=== PATIENT | male | born 1950 | race Caucasian/White ===

== ENCOUNTER 2016-08-18 08:44 | Inpatient (IN) | payer MEDICARE, OTHER ==
[~2016-08-18] VITALS: Ht 162.6 cm; Wt 97.6 kg
[~2016-08-18 08:44] MED LIST: ALBU25PO2; AMIO200T2 PO; ATOR10TA60 PO; BUDE10.2; CARV3.12; DABI150C; DIGO0.25; DILT360C; DOXY100C2 PO; ESOM40CA PO; FENO130C; FURO-68 PO; FURO-69 PO; OXYGEN; POTA10TA; POTA20TA4 PO; PRED-220 PO; PROAIR HFA8.5 GM IH; SIMV20TA
[2016-08-18 09:12] LABS: BASO # 0.1 x10^3/uL (0.0-0.2); BASO % 1 % (0-3); EOS % 1 % (0-3); HEMOGLOBIN 18.6 g/dL (13.0-17.5); LYMPH # 1.9 x10^3/uL (1.0-4.8); LYMPH % 17 % (24-48); MEAN CORPUSCULAR HEMOGLOBIN 30 pg (25-35); MEAN CORPUSCULAR HGB CONC 33 g/dL (31-37); MEAN CORPUSCULAR VOLUME 93 fL (79-100); MONO % 11 % (0-9); NEUT % 71 % (31-73); PLATELET COUNT 207 x10^3/uL (140-400); RED BLOOD COUNT 6.15 x10^6/uL (4.30-5.70); RED CELL DISTRIBUTION WIDTH 14.5 % (11.5-14.5); WHITE BLOOD COUNT 11.4 x10^3/uL (4.0-11.0)
--- NOTE | 2016-08-18 09:15 | PHYS DOC ---
Past Medical History Past Medical History: CAD, CHF, COPD, High Cholesterol, MS Past Surgical History: Coronary Bypass Surgery Additional Past Surgical Histo: HEART SX, AICD Smoking: Quit Greater Than 1 Year Alcohol Use: None Drug Use: None Adult General Chief Complaint Chief Complaint: CHEST PAIN [facility] HPI Patient is a 66 year old male with history of HTN, hyperlipidemia, and CABG with AICD who presents with epigastric and chest pain with shortness of breath starting at 0600 today. He describes the pain as a pressure. He reports feeling nauseated without vomiting. He has had a non-productive cough without fevers. He felt his pulse and felt like it was more rapid. He feels generally weak and occasionally lightheaded. He denies swelling of the lower extremities or calf pain. He took all of his daily morning medications today prior to arrival. His PCP is Dr. Gatica. His continuous still operator is Dr. Rowland. Review of Systems Review of Systems Constitutional: Denies fever or chills. [] Eyes: Denies change in visual acuity, redness, or eye pain. [] HENT: Denies ear pain, nasal congestion or sore throat. [] Respiratory: Reports shortness of breath with mild non-productive cogh. Cardiovascular: Denies edema. Reports palpitations with chest pain. GI: Denies nausea, vomiting, bloody stools or diarrhea. Reports epigastric pain. : Denies dysuria, hematuria or urinary frequency. [] Musculoskeletal: Denies back pain or joint pain. [] Integument: Denies rash or skin lesions. [] Neurologic: Denies headache, focal weakness or sensory changes. Reports generalized weakness and feeling lightheaded. Endocrine: Denies polyuria or polydipsia. [] Psych: Denies anxiety or depression. [] All systems reviewed and negative unless otherwise stated in the HPI. Allergies Allergies Allergies Coded Allergies Type Severity Reaction Last Updated Verified No Known Drug Allergies 09/25/14 No Physical Exam Physical Exam Constitutional: Well developed, well nourished, no acute distress, non-toxic appearance. [] HENT: Normocephalic, atraumatic, oropharynx moist. [] Eyes: PERRLA, EOMI, conjunctiva normal, no discharge. [] Neck: Normal range of motion, no tenderness, supple, no stridor. [] Cardiovascular: Heart rate regular rhythm, no murmur. [] Lungs & Thorax: Bilateral breath sounds clear to auscultation without wheezes, rales, or rhonchi. [] Abdomen: Bowel sounds normal, soft, no tenderness, no masses, no pulsatile masses. [] Skin: Warm, dry, no erythema, no rash. [] Back: No midline tenderness, no CVA tenderness. [] Extremities: No tenderness, ROM intact, no edema. 2+ DP pulses bilaterally. [] Neurologic: Alert and oriented X 3, normal motor function, normal sensory function, no focal deficits noted. [] Psychologic: Affect normal, judgement normal, mood normal. [] Current Patient Data Vital Signs Vital Signs Date Time Temp Pulse Resp B/P Pulse Ox O2 Delivery O2 Flow Rate FiO2 08/18/16 08:48 98.1 62 20 148/85 94 Room Air 98.1 Lab Values Laboratory Tests Test 08/18/16 09:05 White Blood Count 11.4x10^3/uL (4.0-11.0) H Red Blood Count 6.15x10^6/uL (4.30-5.70) H Hemoglobin 18.6g/dL (13.0-17.5) H Hematocrit 57.0% (39.0-53.0) H Mean Corpuscular Volume 93fL (79-100) Mean Corpuscular Hemoglobin 30pg (25-35) Mean Corpuscular Hemoglobin Concent 33g/dL (31-37) Red Cell Distribution Width 14.5% (11.5-14.5) Platelet Count 207x10^3/uL (140-400) Neutrophils (%) (Auto) 71% (31-73) Lymphocytes (%) (Auto) 17% (24-48) L Monocytes (%) (Auto) 11% (0-9) H Eosinophils (%) (Auto) 1% (0-3) Basophils (%) (Auto) 1% (0-3) Neutrophils # (Auto) 8.1x10^3uL (1.8-7.7) H Lymphocytes # (Auto) 1.9x10^3/uL (1.0-4.8) Monocytes # (Auto) 1.3x10^3/uL (0.0-1.1) H Eosinophils # (Auto) 0.1x10^3/uL (0.0-0.7) Basophils # (Auto) 0.1x10^3/uL (0.0-0.2) Prothrombin Time 15.0SEC (11.7-14.0) H Prothrombin Time INR 1.3 (0.8-1.1) H Sodium Level 140mmol/L (136-145) Potassium Level 3.6mmol/L (3.5-5.1) Chloride Level 99mmol/L (98-107) Carbon Dioxide Level 32mmol/L (21-32) Anion Gap 9 (6-14) Blood Urea Nitrogen 20mg/dL (8-26) Creatinine 1.5mg/dL (0.7-1.3) H Estimated GFR (Cockcroft-Gault) 46.7 Glucose Level 116mg/dL (70-99) H Calcium Level 9.2mg/dL (8.5-10.1) Magnesium Level 2.5mg/dL (1.8-2.4) H Total Bilirubin 0.9mg/dL (0.2-1.0) Direct Bilirubin 0.2mg/dL (0.0-0.2) Aspartate Amino Transferase (AST) 48U/L (15-37) H Alanine Aminotransferase (ALT) 77U/L (16-63) H Alkaline Phosphatase 181U/L (46-116) H Creatine Kinase 78U/L (39-308) Creatine Kinase MB (Mass) 1.1ng/mL (0.0-3.6) Creatine Kinase MB Relative Index 1.4% (0-4) Troponin I Quantitative < 0.017ng/mL (0.000-0.055) NG-Sir-O-Type Natriuretic Peptide 388pg/mL (0-124) H Total Protein 8.0g/dL (6.4-8.2) Albumin 4.0g/dL (3.4-5.0) Lipase 172U/L (73-393) Laboratory Tests 08/18/16 09:05 Laboratory Tests 08/18/16 09:05 EKG EKG EKG at 0855. Heart rate 65 bpm. Sinus rhythm without any acute ischemic changes or STEMI, as interpreted by Dr. Blankenship. Radiology/Procedures Radiology/Procedures REASON: soa, epigastric pain PROCEDURE: PORTABLE CHEST 1V Portable chest, 08/18/2016: History: Shortness of breath, elevated blood pressure Comparison is made to a study from 01/30/2016. There has been a previous median sternotomy. A left-sided transvenous pacemaker remains in place with a single lead extending into the right ventricle. There are epicardial leads overlying the upper heart. The heart is enlarged. There is mild tortuosity of the thoracic aorta. The pulmonary vascularity is normal. There is minimal linear scarring in the left base. No acute infiltrates are seen. There is no evidence of pleural fluid. IMPRESSION: 1. Mild cardiomegaly. 2. No acute abnormality is detected. Course & Med Decision Making Course & Med Decision Making Pertinent Labs and Imaging studies reviewed. (See chart for details) Patient is a 66-year-old male with history of hypertension, hyperlipidemia, CABG , and AICD who presents with shortness of breath with epigastric and chest pain starting this morning. Upon arrival to the emergency department, his vital signs are stable. Heart rate is regular without murmur and lungs are clear to auscultation. He has no tenderness over the chest wall or abdomen. EKG does not show any acute ischemic changes or STEMI. Initial troponin is negative. Chest x- ray does not show any acute abnormalities. Patient will be admitted to the hospital for repeat troponins and continued monitoring. The patient is in agreement with this plan. Dr. Rowland accepts the admission. The patient was in stable while in the emergency department. Dragon Disclaimer Dragon Disclaimer This electronic medical record was generated, in whole or in part, using a voice recognition dictation system. Departure Departure Impression: Primary Impression: Chest pain Additional Impression: Dyspnea Admitting Physician: Jerry Rowland Condition: STABLE Referrals: KATHERINE GATICA MD (PCP) Problem Qualifiers Primary Impression: Chest pain Chest pain type: unspecified Qualified Code: R07.9 - Chest pain, unspecified Additional Impression: Dyspnea Dyspnea type: shortness of breath Qualified Code: R06.02 - Shortness of breath JP LAWS Aug 18, 2016 09:15
[2016-08-18 09:24] LABS: CALCIUM 9.2 mg/dL (8.5-10.1); CREATININE 1.5 mg/dL (0.7-1.3); GFR 46.7; POTASSIUM 3.6 mmol/L (3.5-5.1)
[2016-08-18 09:31] LABS: DIRECT BILIRUBIN 0.2 mg/dL (0.0-0.2); MAGNESIUM 2.5 mg/dL (1.8-2.4); TOTAL BILIRUBIN 0.9 mg/dL (0.2-1.0)
[2016-08-18 09:35] LABS: INR 1.3 (0.8-1.1)
[2016-08-18 09:37] LABS: CKMB INDEX 1.4 % (0-4); CKMB MASS 1.1 ng/mL (0.0-3.6)
--- NOTE | 2016-08-18 09:38 | RAD ---
Portable chest, 08/18/2016: History: Shortness of breath, elevated blood pressure Comparison is made to a study from 01/30/2016. There has been a previous median sternotomy. A left-sided transvenous pacemaker remains in place with a single lead extending into the right ventricle. There are epicardial leads overlying the upper heart. The heart is enlarged. There is mild tortuosity of the thoracic aorta. The pulmonary vascularity is normal. There is minimal linear scarring in the left base. No acute infiltrates are seen. There is no evidence of pleural fluid. IMPRESSION: 1. Mild cardiomegaly. 2. No acute abnormality is detected.
--- NOTE | 2016-08-18 09:47 | ACF ---
Admission Forms Criteria HEART FAILURE: COMMON COMPLICATIONS Clinical Indications for Inpatient Care (Place 'X' for any and all applicable criteria): Ongoing inpatient care may be indicated for heart failure with ANY ONE of the following (1)(2)(3)(4)(5): [ ]I. Ongoing need for care for primary condition requiring frequent therapy adjustments because of changes in cardiac function (eg, drug dosage changes for drugs that are renally metabolized) [ ]II. New-onset heart failure [ ]III. Heart failure with decreased urine output not responsive to attempts to optimize volume status [ ]IV. Acute cardiac ischemia causing or associated with failure [X ]V. Complications of heart failure, including ANY ONE of the following: [ ]a) Pericardial effusion [ ]b) Symptomatic pleural effusion [ ]c) O2 saturation <90% or PO2 < 60 mm Hg (8.0 kPa) on room air or require baseline supplemental O2 [ ]d) Tachypnea [X ]e) Dyspnea [ ]f) Syncope [ ]g) Change in mental status [ ]h) Acute renal insufficiency that is severe (reduction of more than 50% in estimated glomerular filtration rate from baseline) or progressive reduction of more than 25% in estimated glomerular filtration rate from baseline, with creatinine continuing to rise) [ ]i) Hemodynamic instability [ ]j) Anasarca [ ]k) Clinically significant metabolic abnormalities due to heart failure (eg, new-onset metabolic acidosis) Extended stay beyond goal length of stay for primary condition may be needed until ALL of the following are present(1)(3): [ ]a) Stable and effective diuretic regimen established (or patient on stable dialysis regimen if in chronic renal failure) [ ]b) Breathing comfortably at rest [ ]c) Saturation of arterial oxygen greater than 90% or at acceptable baseline [ ]d) Pulmonary edema absent or improved [ ]e) Hemodynamic stability [ ]f) Volume status acceptable on oral medication [ ]g) Peripheral or sacral edema absent or improved [ ]h) Renal function stable and manageable at a lower level of care [ ]i) Complications (eg, pleural effusion) resolved or manageable at a lower level of care [ ]j) Patient or caregiver has received written discharge instructions or educational material addressing activity level, diet, discharge medications, follow-up appointment, weight monitoring, and what to do if symptoms worsen The original [employer] [facility] content created by [employer] has been revised. The portions of the content which have been revised are identified through the use of italic text or in bold, and [facility] has neither reviewed nor approved the modified material.All other unmodified content is copyright [facility]. Please see references footnoted in the original [facility] edition 2016 Admission Criteria Met?: Yes BRADY AGUILAR Aug 18, 2016 09:47
[2016-08-18] MEDS ORDERED: PROCHLORPERAZINE 10 MG/2 ML VIAL. IV PRN (10:00)
[2016-08-18] MEDS ORDERED: MORPHINE SULFATE 4 MG/ML DISP.SYRIN. IV PRN (10:00)
[2016-08-18 10:45] VITALS: BP 123/84
[2016-08-18] MEDS: AMIODARONE HCL 200 MG TABLET PO SCH (12:58)
[2016-08-18] MEDS: POTASSIUM CHLORIDE 20 MEQ TABLET.ER. PO SCH (12:59)
[2016-08-18] MEDS: PANTOPRAZOLE 40 MG TABLET. PO SCH (12:59)
--- NOTE | 2016-08-18 13:16 | EKG ---
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
[2016-08-18 15:15] VITALS: BP 136/82
[2016-08-18] MEDS ORDERED: FUROSEMIDE 40 MG/4 ML VIAL IVP ONE (16:00)
--- NOTE | 2016-08-18 17:01 | PDOC1 ---
History and Physical Date of Admission Date of Admission DATE: 08/18/16 TIME: 9:17 Identification/Chief Complaint Chief Complaint Hypertension Source Source: Patient History of Present Illness History of Present Illness Mr. Leonard is a 66 year old male with known HTN, CHF, CAD s/p CABG, Vtach s/p AICD, Afib on anticoagulation, ANNETTE on CPAP, GERD, and hx of GA in 2010 who presents to the ED after family check his blood pressure this morning around 6: 00 and noted it to be high. He was unable to recall what it was and family was not currently present. He also reported mild dyspnea, but felt it was related to his CPAP that he began using 2 weeks ago. He states he had some mild transient lightheadedness, but states that is typical for him. He denies any angina or lower extremity edema, but does report some nausea without vomiting as well as a "fast pulse." He also reports a dry productive cough. He denies any headache or changes in vision or hearing. He denies complications with bowel, bladder, or appetite, but did report poor po fluid intake, and that he had been drinking alot of soda. He offers no other complaints at this time Past Medical History Cardiovascular: AFIB (on Pradaxa), CAD (S/P CABG in 2010), CHF, HTN, GA (2010) , Hyperlipidemia, Other (Vtach- has AICD) Pulmonary: Pneumonia, Other (ANNETTE on CPAP) GI: GERD, Hemorrhoids Past Surgical History Past Surgical History: CABG Family History Family History: Coronary Artery Disease Social History Smoke: Quit (Quit 2010, previously 1ppd for 50 years) ALCOHOL: none Drugs: None Current Problem List Problem List Problems Medical Problems: (1) Chest pain Status: Acute (2) Dyspnea Status: Acute Problems: Current Medications Current Medications Current Medications Morphine Sulfate 4 mg PRN Q2HR PRN IV PAIN; Start 08/18/16 at 10:00; Stop at 09:59 Prochlorperazine Edisylate (Compazine) 10 mg PRN Q8HRS PRN IV NAUSEA/VOMITING; Start 08/18/16 at 10:00 Furosemide (Lasix) 40 mg 1X ONCE IVP Last administered on 08/18/16t 15:40; Start 08/18/16 at 16:00; Stop 08/18/16 at 16:01; Status DC Amiodarone HCl (Cordarone) 200 mg DAILY PO ; Start 08/18/16 at 13:30 Atorvastatin Calcium (Lipitor) 20 mg HS PO ; Start 08/18/16 at 21:00 Carvedilol (Coreg) 3.125 mg BIDWMEALS PO ; Start 08/18/16 at 17:00 Dabigatran (Pradaxa) 150 mg BID PO ; Start 08/18/16 at 21:00 Furosemide (Lasix) 20 mg DAILY PO ; Start 08/19/16 at 09:00 Potassium Chloride (Klor-Con) 20 meq DAILYWBKFT PO ; Start 08/18/16 at 13:30 Pantoprazole Sodium (Protonix) 40 mg DAILYAC PO ; Start 08/18/16 at 13:30 Active Scripts Active Klor-Con M20 (Potassium Chloride) 20 Meq Tablet.er 20 Meq PO DAILYWBKFT Reported Lasix (Furosemide) 40 Mg Tablet 20 Mg PO DAILY Atorvastatin Calcium 10 Mg Tablet 20 Mg PO HS Amiodarone Hcl 200 Mg Tablet 200 Mg PO DAILY Nexium Capsule (Esomeprazole Magnesium) 40 Mg Capsule.dr 40 Mg PO DAILYAC Pradaxa (Dabigatran Etexilate Mesylate) 150 Mg Capsule BID Coreg (Carvedilol) 3.125 Mg Tablet BID Allergies Allergies: Coded Allergies: No Known Drug Allergies (Unverified , 09/25/14) Physical Exam General: Alert, Oriented X3, Cooperative, No acute distress HEENT: PERRLA, EOMI Heart: no rubs, no gallops, no murmurs, no jug vein distention, irregularly irregular Abdomen: Normal bowel sounds, No tenderness, No hepatosplenomegaly, Other ( Distended) Extremities: No clubbing, No cyanosis, No edema, Normal pulses, No tenderness/ swelling Skin: No rashes, No breakdown, No significant lesion Neuro: Normal speech, Normal tone, Cranial nerves 3-12 NL Psych/Mental Status: Mental status NL, Mood NL Vitals Vitals Vital Signs Date Time Temp Pulse Resp B/P Pulse Ox O2 Delivery O2 Flow Rate FiO2 08/18/16 15:15 97.2 63 18 136/82 96 Nasal Cannula 2.0 97.2 Labs Labs Laboratory Tests Test 08/18/16 09:05 08/18/16 15:30 White Blood Count 11.4x10^3/uL (4.0-11.0) Red Blood Count 6.15x10^6/uL (4.30-5.70) Hemoglobin 18.6g/dL (13.0-17.5) Hematocrit 57.0% (39.0-53.0) Mean Corpuscular Volume 93fL (79-100) Mean Corpuscular Hemoglobin 30pg (25-35) Mean Corpuscular Hemoglobin Concent 33g/dL (31-37) Red Cell Distribution Width 14.5% (11.5-14.5) Platelet Count 207x10^3/uL (140-400) Neutrophils (%) (Auto) 71% (31-73) Lymphocytes (%) (Auto) 17% (24-48) Monocytes (%) (Auto) 11% (0-9) Eosinophils (%) (Auto) 1% (0-3) Basophils (%) (Auto) 1% (0-3) Neutrophils # (Auto) 8.1x10^3uL (1.8-7.7) Lymphocytes # (Auto) 1.9x10^3/uL (1.0-4.8) Monocytes # (Auto) 1.3x10^3/uL (0.0-1.1) Eosinophils # (Auto) 0.1x10^3/uL (0.0-0.7) Basophils # (Auto) 0.1x10^3/uL (0.0-0.2) Prothrombin Time 15.0SEC (11.7-14.0) Prothromb Time International Ratio 1.3 (0.8-1.1) Sodium Level 140mmol/L (136-145) Potassium Level 3.6mmol/L (3.5-5.1) Chloride Level 99mmol/L (98-107) Carbon Dioxide Level 32mmol/L (21-32) Anion Gap 9 (6-14) Blood Urea Nitrogen 20mg/dL (8-26) Creatinine 1.5mg/dL (0.7-1.3) Estimated GFR (Cockcroft-Gault) 46.7 Glucose Level 116mg/dL (70-99) Calcium Level 9.2mg/dL (8.5-10.1) Magnesium Level 2.5mg/dL (1.8-2.4) Total Bilirubin 0.9mg/dL (0.2-1.0) Direct Bilirubin 0.2mg/dL (0.0-0.2) Aspartate Amino Transf (AST/SGOT) 48U/L (15-37) Alanine Aminotransferase (ALT/SGPT) 77U/L (16-63) Alkaline Phosphatase 181U/L (46-116) Creatine Kinase 78U/L (39-308) Creatine Kinase MB (Mass) 1.1ng/mL (0.0-3.6) Creatine Kinase MB Relative Index 1.4% (0-4) Troponin I Quantitative < 0.017ng/mL (0.000-0.055) < 0.017ng/mL (0.000-0.055) ZD-Hda-A-Type Natriuretic Peptide 388pg/mL (0-124) Total Protein 8.0g/dL (6.4-8.2) Albumin 4.0g/dL (3.4-5.0) Lipase 172U/L (73-393) Laboratory Tests Test 08/18/16 09:05 08/18/16 15:30 White Blood Count 11.4x10^3/uL (4.0-11.0) Red Blood Count 6.15x10^6/uL (4.30-5.70) Hemoglobin 18.6g/dL (13.0-17.5) Hematocrit 57.0% (39.0-53.0) Mean Corpuscular Volume 93fL (79-100) Mean Corpuscular Hemoglobin 30pg (25-35) Mean Corpuscular Hemoglobin Concent 33g/dL (31-37) Red Cell Distribution Width 14.5% (11.5-14.5) Platelet Count 207x10^3/uL (140-400) Neutrophils (%) (Auto) 71% (31-73) Lymphocytes (%) (Auto) 17% (24-48) Monocytes (%) (Auto) 11% (0-9) Eosinophils (%) (Auto) 1% (0-3) Basophils (%) (Auto) 1% (0-3) Neutrophils # (Auto) 8.1x10^3uL (1.8-7.7) Lymphocytes # (Auto) 1.9x10^3/uL (1.0-4.8) Monocytes # (Auto) 1.3x10^3/uL (0.0-1.1) Eosinophils # (Auto) 0.1x10^3/uL (0.0-0.7) Basophils # (Auto) 0.1x10^3/uL (0.0-0.2) Prothrombin Time 15.0SEC (11.7-14.0) Prothromb Time International Ratio 1.3 (0.8-1.1) Sodium Level 140mmol/L (136-145) Potassium Level 3.6mmol/L (3.5-5.1) Chloride Level 99mmol/L (98-107) Carbon Dioxide Level 32mmol/L (21-32) Anion Gap 9 (6-14) Blood Urea Nitrogen 20mg/dL (8-26) Creatinine 1.5mg/dL (0.7-1.3) Estimated GFR (Cockcroft-Gault) 46.7 Glucose Level 116mg/dL (70-99) Calcium Level 9.2mg/dL (8.5-10.1) Magnesium Level 2.5mg/dL (1.8-2.4) Total Bilirubin 0.9mg/dL (0.2-1.0) Direct Bilirubin 0.2mg/dL (0.0-0.2) Aspartate Amino Transf (AST/SGOT) 48U/L (15-37) Alanine Aminotransferase (ALT/SGPT) 77U/L (16-63) Alkaline Phosphatase 181U/L (46-116) Creatine Kinase 78U/L (39-308) Creatine Kinase MB (Mass) 1.1ng/mL (0.0-3.6) Creatine Kinase MB Relative Index 1.4% (0-4) Troponin I Quantitative < 0.017ng/mL (0.000-0.055) < 0.017ng/mL (0.000-0.055) GO-Ojt-O-Type Natriuretic Peptide 388pg/mL (0-124) Total Protein 8.0g/dL (6.4-8.2) Albumin 4.0g/dL (3.4-5.0) Lipase 172U/L (73-393) VTE Prophylaxis Ordered VTE Prophylaxis Devices: No VTE Pharmacological Prophylaxi: Yes Assessment/Plan Assessment/Plan Hypertension- Currently 123/84 at 10:45, BP this morning unknown. Improved with one dose 40mg Lasix. Continue home Coreg and Lasix. Likely D/C home tomorrow Lightheadedness- Likely 2/2 to dehydration as Creatinine and Hb were elevated. No angina or dyspnea reported. Continue 2L NC during day, road test tomorrow to determine O2 requirement during day. Will discuss fluid intake outpatient. Consider D/C morphine PRN. PT/OT consult CHF- echo on 01/27/16 showed EF of 20% with severe LV systolic dysfunction. CXR unremarkable. Continue home Coreg and Lasix AFib- present on EKG on 08/18. Continue home Amiodarone, Pradaxa RADHA- likely Pre-renal- Hypovolemia vs CHF, continue Lasix for now. Will check creatinine qd. No fluids for now. Avoid nephrotoxic agents Hyperlipidemia- Continue home Atorvastatin ANNETTE- continue CPAP hs GERD- Started Protonix 40mg po qd Nausea- resolved, ok to D/C ARIELLA Sosa MD Aug 18, 2016 17:01
[2016-08-18 19:00] VITALS: BP 130/75
[2016-08-18] MEDS: CARVEDILOL 3.125 MG TABLET PO SCH (19:09)
[2016-08-18] MEDS ORDERED: ATORVASTATIN CALCIUM 10 MG TABLET. PO SCH (21:00)
[2016-08-18] MEDS: DABIGATRAN ETEXILATE 150 MG CAPSULE. PO SCH (21:52)
[2016-08-18 23:00] VITALS: BP 122/86
[2016-08-19 03:00] VITALS: BP 120/82
[2016-08-19 07:00] VITALS: BP 135/81
[2016-08-19] MEDS ORDERED: FUROSEMIDE 20 MG TABLET PO SCH (09:00)
[2016-08-19] MEDS: DABIGATRAN ETEXILATE 150 MG CAPSULE. PO SCH (09:08)
[2016-08-19] MEDS: PANTOPRAZOLE 40 MG TABLET. PO SCH (09:08)
[2016-08-19] MEDS: POTASSIUM CHLORIDE 20 MEQ TABLET.ER. PO SCH (09:09)
[2016-08-19] MEDS: CARVEDILOL 3.125 MG TABLET PO SCH ×2 (09:09→16:52)
[2016-08-19] MEDS: AMIODARONE HCL 200 MG TABLET PO SCH (09:12)
[2016-08-19 11:00] VITALS: BP 126/82
[2016-08-19] MEDS ORDERED: ANTI-COAG MONITOR BY PHARMACY. MC PRN (13:45)
--- NOTE | 2016-08-19 14:44 | PDOC3 ---
Discharge Summary* Date of Admission: Aug 18, 2016 Date of Discharge: Aug 19, 2016 Admitting Diagnosis Problems Medical Problems: (1) Chest pain Status: Acute (2) Dyspnea Status: Acute Final Diagnosis Problems Medical Problems: (1) Chest pain Status: Acute (2) Dyspnea Status: Acute Brief Hospital Course Mr. Leonard is a 66 old male who presented to the [facility] ED after having his blood pressure checked Tuesday and was told it was elevated and should go to the hospital. He does know how high it was, but also complained of acute dyspnea that resolved after a one time dose of 40mg Lasix and being placed on 2L O2 NC during the day. He denied any angina throughout the event and while inpatient. The symptoms have resolved today and he feels well. He will be discharged after a 6 min walk to determine if any new O2 requirements. He is to follow up outpatient in my office. At the time of discharge the patient demonstrated understanding of the plan of care and all questions were answered. Disposition/Orders: D/C to Home CONDITION AT DISCHARGE: Improved Diet: Cardiac Scheduled Amiodarone Hcl (Amiodarone Hcl) 200 MG PO DAILY (Reported) Atorvastatin Calcium (Atorvastatin Calcium) 20 MG PO HS (Reported) Carvedilol (Coreg) BID (Reported) Dabigatran Etexilate Mesylate (Pradaxa) BID (Reported) Esomeprazole Magnesium (Nexium Capsule) 40 MG PO DAILYAC (Reported) Furosemide (Lasix) 20 MG PO DAILY (Reported) Potassium Chloride (Klor-Con M20) 20 MEQ PO DAILYWBKFT FOLLOW UP APPOINTMENT: Follow up in my office in 3 weeks ARIELLA SALMERON MD Aug 19, 2016 14:44
[2016-08-19 15:00] VITALS: BP 110/65
[2016-08-19 16:52] VITALS: BP 110/65
[2016-08-26] MEDS ORDERED: FURO80TA72 PO (12:38)
== END 2016-08-19 18:10 | disposition home or self-care (01) | DRG 682 ==
LOC: ER 08:44 → 5 NORTH 09:50
PROVIDERS: ADMIT Internal Medicine Cardiovascular Disease; ATTEND Internal Medicine Cardiovascular Disease
DX: N17.9 Acute kidney failure, unspecified (principal); I50.23 Acute on chronic systolic (congestive) heart failure; I11.0 Hypertensive heart disease with heart failure; E78.00 Pure hypercholesterolemia, unspecified; E78.5 Hyperlipidemia, unspecified; G47.33 Obstructive sleep apnea (adult) (pediatric); I25.10 Atherosclerotic heart disease of native coronary artery without angina pectoris; I48.91 Unspecified atrial fibrillation; J44.9 Chronic obstructive pulmonary disease, unspecified; K21.9 Gastro-esophageal reflux disease without esophagitis; Z79.01 Long term (current) use of anticoagulants; Z82.49 Family history of ischemic heart disease and other diseases of the circulatory system; I25.2 Old myocardial infarction; Z87.891 Personal history of nicotine dependence; Z95.1 Presence of aortocoronary bypass graft; Z95.810 Presence of automatic (implantable) cardiac defibrillator
CPT/HCPCS: 36415; 71010; 80048; 80076; 82553; 83690; 83735; 83880; 84484; 85027; 85610; 93005; 94620; J1940; 99285-25

== ENCOUNTER 2017-02-07 04:31 | Emergency (ER) | payer MEDICARE, OTHER ==
[~2017-02-07] VITALS: Ht 162.6 cm; Wt 99.3 kg
[~2017-02-07 04:31] MED LIST changes: +FURO80TA72 PO
--- NOTE | 2017-02-07 04:53 | PHYS DOC ---
Past Medical History Past Medical History: CAD, CHF, COPD, High Cholesterol, ND Additional Past Medical Histor: CPAP Past Surgical History: Coronary Bypass Surgery, Pacemaker Additional Past Surgical Histo: CABG X 4 2010, AICD 2016 Alcohol Use: None Drug Use: None Adult General Chief Complaint Chief Complaint: DIZZY/LIGHT HEADED HPI HPI Patient is a 66 year old male with complex cardiac history including intermittent V. tach who presents with son for evaluation of lightheadedness/ dizziness and shortness of breath that has been present since approximately 6 PM. He took his nighttime dose of amiodarone. States approximately 1 week ago he decreased to daily amiodarone from BID. He notes compliance with all of his other medications. He denies chest pain, palpitations, cough, hemoptysis, leg pain or swelling, orthopnea, vision changes, nausea or vomiting, numbness, tingling, weakness, abdominal pain, back pain, dysuria, diarrhea. He denies ICD fire. Review of Systems Review of Systems Constitutional: Denies fever or chills [] Eyes: Denies change in visual acuity, redness, or eye pain [] HENT: Denies nasal congestion or sore throat [] Respiratory: Denies cough [] Cardiovascular: No additional information not addressed in HPI [] GI: Denies abdominal pain, nausea, vomiting, bloody stools or diarrhea [] : Denies dysuria or hematuria [] Musculoskeletal: Denies back pain or joint pain [] Integument: Denies rash or skin lesions [] Neurologic: Denies headache, focal weakness or sensory changes [] Endocrine: Denies polyuria or polydipsia [] Current Medications Current Medications Current Medications Medications (Trade) Dose Ordered Sig/Shaheen Start Time Stop Time Status Last Admin Dose Admin Potassium Chloride (Klor-Con) 40 meq 1X ONCE 02/07/17 05:30 02/07/17 05:31 DC 02/07/17 05:24 40 MEQ Allergies Allergies Allergies Coded Allergies Type Severity Reaction Last Updated Verified No Known Drug Allergies 09/25/14 No Physical Exam Physical Exam Constitutional: Well developed, well nourished, no acute distress, non-toxic appearance. [] HENT: Normocephalic, atraumatic, bilateral external ears normal, oropharynx moist, nose normal. [] Eyes: PERRLA, EOMI. [] Neck: Normal range of motion, supple. [] Cardiovascular:Heart rate regular rhythm [] Lungs & Thorax: Bilateral breath sounds clear to auscultation [] Abdomen: Bowel sounds normal, soft, no tenderness. [] Skin: Warm, dry, no erythema, no rash. [] Back: Normal range of motion. [] Extremities: No tenderness, ROM intact, no edema. [] Neurologic: Alert and oriented X 3, normal motor function, normal sensory function, no focal deficits noted. [] Psychologic: Affect normal, judgement normal, mood normal. [] Current Patient Data Vital Signs Vital Signs Date Time Temp Pulse Resp B/P (MAP) Pulse Ox O2 Delivery O2 Flow Rate FiO2 02/07/17 04:35 97.5 64 18 140/90 (107) 97 Room Air 97.5 Lab Values Laboratory Tests Test 02/07/17 04:55 White Blood Count 11.1 x10^3/uL (4.0-11.0) H Red Blood Count 5.57 x10^6/uL (4.30-5.70) Hemoglobin 17.5 g/dL (13.0-17.5) Hematocrit 52.0 % (39.0-53.0) Mean Corpuscular Volume 93 fL (79-100) Mean Corpuscular Hemoglobin 31 pg (25-35) Mean Corpuscular Hemoglobin Concent 34 g/dL (31-37) Red Cell Distribution Width 14.6 % (11.5-14.5) H Platelet Count 229 x10^3/uL (140-400) Neutrophils (%) (Auto) 72 % (31-73) Lymphocytes (%) (Auto) 14 % (24-48) L Monocytes (%) (Auto) 11 % (0-9) H Eosinophils (%) (Auto) 1 % (0-3) Basophils (%) (Auto) 1 % (0-3) Neutrophils # (Auto) 8.0 x10^3uL (1.8-7.7) H Lymphocytes # (Auto) 1.6 x10^3/uL (1.0-4.8) Monocytes # (Auto) 1.3 x10^3/uL (0.0-1.1) H Eosinophils # (Auto) 0.1 x10^3/uL (0.0-0.7) Basophils # (Auto) 0.1 x10^3/uL (0.0-0.2) Prothrombin Time 14.5 SEC (11.7-14.0) H Prothrombin Time INR 1.2 (0.8-1.1) H Sodium Level 141 mmol/L (136-145) Potassium Level 3.4 mmol/L (3.5-5.1) L Chloride Level 100 mmol/L (98-107) Carbon Dioxide Level 29 mmol/L (21-32) Anion Gap 12 (6-14) Blood Urea Nitrogen 20 mg/dL (8-26) Creatinine 1.3 mg/dL (0.7-1.3) Estimated GFR (Cockcroft-Gault) 55.1 Glucose Level 140 mg/dL (70-99) H Calcium Level 9.0 mg/dL (8.5-10.1) Magnesium Level 2.2 mg/dL (1.8-2.4) Total Bilirubin 0.8 mg/dL (0.2-1.0) Direct Bilirubin 0.2 mg/dL (0.0-0.2) Aspartate Amino Transferase (AST) 47 U/L (15-37) H Alanine Aminotransferase (ALT) 63 U/L (16-63) Alkaline Phosphatase 129 U/L (46-116) H Troponin I Quantitative < 0.017 ng/mL (0.000-0.055) SV-Fxc-Y-Type Natriuretic Peptide 637 pg/mL (0-124) H Total Protein 7.8 g/dL (6.4-8.2) Albumin 3.9 g/dL (3.4-5.0) Laboratory Tests 02/07/17 04:55 Laboratory Tests 02/07/17 04:55 EKG EKG EKG as interpreted by me as normal sinus rhythm, rate 79, no ST-T changes, NC 212, QTc 502, PVCs Radiology/Procedures Radiology/Procedures Chest xray as interpreted by me with no acute cardiopulmonary disease process Course & Med Decision Making Course & Med Decision Making Pertinent Labs and Imaging studies reviewed. (See chart for details) Telemetry monitoring with initial 3 runs of V. tach 10-19 beats, but since has frequent single PVCs. Potassium is mildly low, but laboratory evaluation is largely unremarkable otherwise. Discussed case with Dr. Rowland, cardiology, who recommends restart BID dosing of amiodarone and close follow up in office. Patient is comfortable with this plan. Return precautions given. He understands and agrees with plan. Dragon Disclaimer Dragon Disclaimer This electronic medical record was generated, in whole or in part, using a voice recognition dictation system. Departure Departure Impression: Primary Impression: V tach Additional Impression: Dyspnea Disposition: ADMITTED INPATIENT Condition: GUARDED Referrals: KATHERINE GATICA MD (PCP) Patient Instructions: Medical Screening Exam Additional Instructions: Start taking amiodarone 2 times per day again. Call Dr. Rowland's office today for follow up appointment within this week. Return for any concerns. Problem Qualifiers Additional Impression: Dyspnea Dyspnea type: shortness of breath Qualified Codes: R06.02 - Shortness of breath [place] WALSH MD Feb 07, 2017 04:53
[2017-02-07 05:02] LABS: BASO # 0.1 x10^3/uL (0.0-0.2); BASO % 1 % (0-3); EOS % 1 % (0-3); HEMOGLOBIN 17.5 g/dL (13.0-17.5); LYMPH # 1.6 x10^3/uL (1.0-4.8); LYMPH % 14 % (24-48); MEAN CORPUSCULAR HEMOGLOBIN 31 pg (25-35); MEAN CORPUSCULAR HGB CONC 34 g/dL (31-37); MEAN CORPUSCULAR VOLUME 93 fL (79-100); MONO % 11 % (0-9); NEUT % 72 % (31-73); PLATELET COUNT 229 x10^3/uL (140-400); RED BLOOD COUNT 5.57 x10^6/uL (4.30-5.70); RED CELL DISTRIBUTION WIDTH 14.6 % (11.5-14.5); WHITE BLOOD COUNT 11.1 x10^3/uL (4.0-11.0)
[2017-02-07 05:12] LABS: CREATININE 1.3 mg/dL (0.7-1.3); GFR 55.1; POTASSIUM 3.4 mmol/L (3.5-5.1)
[2017-02-07 05:13] LABS: INR 1.2 (0.8-1.1); PROTHROMBIN TIME PATIENT 14.5 SEC (11.7-14.0)
[2017-02-07 05:18] LABS: ALBUMIN 3.9 g/dL (3.4-5.0); DIRECT BILIRUBIN 0.2 mg/dL (0.0-0.2); MAGNESIUM 2.2 mg/dL (1.8-2.4); TOTAL BILIRUBIN 0.8 mg/dL (0.2-1.0); TOTAL PROTEIN 7.8 g/dL (6.4-8.2)
[2017-02-07] MEDS ORDERED: POTASSIUM CHLORIDE 20 MEQ TABLET.ER. PO ONE (05:30)
[2017-02-07 05:40] VITALS: BP 148/85
--- NOTE | 2017-02-07 06:20 | EKG ---
[facility] [address] [place] [address] Test Date: 2017-02-07 Test Time: 04:45:44 Pat Name: KELLEN WELLS Department: Room: Gender: M Biometrician: : 1950 Requested By: [place] WALSH Order Number: [id number] Reading MD: Measurements Intervals [place] Rate: 79 P: 43 SD: 212 QRS: 77 QRSD: 154 T: 52 QT: 432 QTc: 502 Interpretive Statements SINUS RHYTHM COMPLEX(ES) WITH ABERRANT INTRAVENTRICULAR CONDUCTION VENTRICULAR PREMATURE COMPLEX(ES) NON SPECIFIC INTRAVENTRICULAR BLOCK QRS(T) CONTOUR ABNORMALITY CONSIDER ANTEROSEPTAL MYOCARDIAL DAMAGE RI6.01 Unconfirmed report No previous ECG available for comparison
--- NOTE | 2017-02-07 07:15 | RAD ---
Indication: Dyspnea. Time of exam 0504 hours. Correlation is made with prior exam from 01/17/2017. Changes of median sternotomy are noted. The heart is enlarged but stable. Cardiac defibrillator remains in place. No infiltrate is identified. There is no evidence of congestive failure. No effusion or pneumothorax is detected. Impression: Stable chest. No acute features detected.
[2017-02-09 15:27] LABS: AMIODARONE 3.9 ug/mL (1.0-2.5); DESETHYLAMIODARONE 1.2 ug/mL (1.0-2.5)
== END 2017-02-07 05:49 | disposition home or self-care (01) ==
LOC: ER 04:31
DX: I47.2 Ventricular tachycardia (principal); R06.02 Shortness of breath; E78.00 Pure hypercholesterolemia, unspecified; I50.9 Heart failure, unspecified; I25.10 Atherosclerotic heart disease of native coronary artery without angina pectoris; J44.9 Chronic obstructive pulmonary disease, unspecified; Z95.1 Presence of aortocoronary bypass graft; Z95.810 Presence of automatic (implantable) cardiac defibrillator
CPT/HCPCS: 36415; 71010; 80048; 80076; 80299; 83735; 83880; 84484; 85027; 85610; 93005; 99285-25